=== PATIENT | female | born 1950 | race Caucasian/White ===

== ENCOUNTER → 2017-03-11 | Outpatient (CLI) | payer MEDICARE ==
[~2017-03-11] MED LIST: ALLO100T30 PO; ARIP15TA2 PO; ARMO150T2 PO; ASCO500C2 PO; ASPI-496 PO; ASPI-621 PO; ASPI-650 PO; CALC-599 PO; CELE200C PO; CHERRY EXTRACT PO; CHLO25TA PO; CIPR500T87 PO; CLON-364 PO; DIAZ10TA PO; FROV2.5T2 PO; HYDR-3241 PO; INDO75CA3 PO; LACT1TAB19 PO; LAMO25TA PO; LEVO75TA5 PO; LISI-170 PO; LUTE40CA PO; MAGN400T7 PO; MULT-750 PO; OXAP600T2 PO; OXYC-229 PO; OXYC10TA32 PO; OXYC20TA42 PO; PREG150C PO; ROSU20TA PO; ZOLP10TA PO; ZOLP12.52 PO; [UNRECOGNIZED DRUG - CODE] PO
== END | disposition home or self-care (01) ==
LOC: RAD 10:52
PROVIDERS: ATTEND Internal Medicine
DX: M43.12 Spondylolisthesis, cervical region (principal); M48.02 Spinal stenosis, cervical region; M79.601 Pain in right arm
CPT/HCPCS: 72052

== ENCOUNTER → 2018-04-25 | Outpatient (CLI) | payer MEDICARE ==
[~2018-04-25] MED LIST changes: -ARIP15TA2 PO; +ARIP15TA3 PO; -ARMO150T2 PO; +ARMO150T4 PO; -CALC-599 PO; +CALC-623 PO; -CLON-364 PO; +CLON0.5T11 PO; -FROV2.5T2 PO; +FROV2.5T4 PO; -OXYC-229 PO; +OXYC-307 PO; -OXYC10TA32 PO; +OXYC10TA47 PO
== END | disposition home or self-care (01) ==
LOC: CFH 09:00
PROVIDERS: ATTEND Internal Medicine
DX: R13.10 Dysphagia, unspecified (principal)
CPT/HCPCS: 74220

== ENCOUNTER 2018-04-27 14:26 | Emergency (ER) | payer MEDICARE ==
[~2018-04-27] VITALS: Ht 170.2 cm; Wt 90.0 kg
[2018-04-27] MEDS ORDERED: SODIUM CHLORIDE 0.9% 1,000ML IVBOLUS ONE (14:30)
[2018-04-27] MEDS ORDERED: SODIUM CHLORIDE FLUSH 10ML SYR IVF ONE (14:30)
[2018-04-27] MEDS ORDERED: OMNIPAQUE 350 MG/ML, 100ML BOTTLE ONE (15:14)
[2018-04-27] MEDS ORDERED: CEFTRIAXONE 1,000 MG in SODIUM CHLORIDE 0.9% 50 ML IV ONE ×2 (15:30)
[2018-04-27 16:02] VITALS: BP 110/72
== END 2018-04-27 16:06 | disposition short-term general hospital (02) ==
LOC: ED 16:00
DX: K66.8 Other specified disorders of peritoneum (principal); E11.9 Type 2 diabetes mellitus without complications; Z90.710 Acquired absence of both cervix and uterus
CPT/HCPCS: 70450; 71260; 72125; 74177; 93005; 96360; 99291; J7030; Q9967